=== PATIENT | female | born 1940 | race Caucasian/White ===

== ENCOUNTER → 2017-05-09 | Outpatient (CLI) | payer MEDICARE, BC ==
[~2017-05-09] MED LIST: ACETAMINOPHEN650 M3 PO; AMOX TR-K CLV 81 TA1 PO; ASPIRIN81 M1 PO; BENZONATATE PO; CARAFATE1 G PO; CARDIZEM CD240 MG PO; CO Q-1050 MG PO; COLCRYS0.6 M2 PO; COMBIVENT RESPIM4 GM; DILTIAZEM ER240 M1 PO; FLONASE16 GM; FLOVENT7.9 GM 44; HYOSCYAMINE0.375 M1 PO; K-DUR20 ME1 PO; LEVAQUIN750 MG; LIPITOR80 MG PO; LISINOPRIL PO; METOPROLOL PO; METOPROLOL SUCC25 MG PO; MULTIVITAMIN1 UDCAP PO; OMEGA 3-6-9 11200 MG PO; OXYGEN; PREVACID PO; PROTONIX PO; Q 10; QVAR7.3 GM INH; SEREVENT D50 MCG/DIS PO; SYMBICORT; SYMBICORT INH; THEO-DUR300 MG PO; TRIAMTERENE-HC1 EACH PO; VITAMIN C500 M1 PO; VITAMIN D2000 UNIT PO; ZOCOR PO; ZOFRAN PO
--- NOTE | ~2017-05-09 | CT57 ---
[facility] A Service of [facility] RADIOLOGY TEXT RESULTS PATIENT: GRANT MADRID LOCATION: [facility] : 44 UNIT #: [id number] AGE: [address]: Armando Cortez MD SEX: F ORDER DR: [id number] [place], [place] [address] [id number] O MR#: [id number] Acc #: [id number] NAME: GRANT MADRID : 1940 SEX: F STUDY DATE/TIME: 05/09/2017 10:49 UNIT: [facility] ROOM: STUDY DESCRIPTION: CT Chest Wo Cont Attending Physician: Armando Cortez M.D. Referring Physician: Armando Cortez M.D. Ordering Physician: Armando Cortez M.D. Primary Care Physician: Jermaine Sosa M.D. MEDICAL IMAGING REPORT This report is preliminary unless electronic signature is present EXAM CT chest INDICATION COPD. Right lower lobe pulmonary opacity. Bronchiectasis. Pulmonary abscess. TECHNIQUE CT of the thorax without contrast. Coronal and sagittal reconstructions were obtained. This CT examination was performed with one or more of the following radiation dose reduction techniques: automatic exposure control, adjustment of mA and/or kV according to patient size, and iterative reconstruction. COMPARISON CT chest dated 11/08/2016 and 09/06/2016. FINDINGS There is minimal persistent linear interstitial opacities in the right lung base from the patient's prior pulmonary infection. This continues to improve. There are no new pulmonary opacities. There is no focal consolidation. There is moderate emphysema. Central airways are patent. There is borderline enlargement of the main pulmonary artery measuring 3 cm. There is no pericardial or pleural effusion. Thoracic aorta is normal in caliber. There are some benign partially calcified mediastinal and hilar lymph nodes. Limited images of the upper abdomen were obtained. There is no acute findings. [facility] A Service of [facility] RADIOLOGY TEXT RESULTS PATIENT: GRANT MADRID LOCATION: [facility] : 44 UNIT #: [id number] AGE: [address]: Armando Cortez MD SEX: F ORDER DR: IMPRESSION 1. Continued improvement in the linear interstitial opacities in the right lower lobe likely the sequela of the patient's prior pulmonary infection. There is no new focal consolidation. 2. Emphysema. Dictated by... Blaine Jo M.D. THIS IS AN ELECTRONICALLY VERIFIED REPORT Blaine Jo M.D. at 05/10/2017 8:03 AM MAXI/yolanda TD: 05/10/2017 07:47 JOB #: [id number] MEDICAL IMAGING REPORT Page 1 of 1 COPY
== END | disposition home or self-care (01) ==
LOC: CCAT 10:29
DX: J47.9 Bronchiectasis, uncomplicated (principal); J85.1 Abscess of lung with pneumonia; J43.9 Emphysema, unspecified
CPT/HCPCS: 71250

== ENCOUNTER → 2017-05-22 | Outpatient (CLI) | payer MEDICARE, BC ==
--- NOTE | ~2017-05-22 | MY29 ---
[facility] A Service of [facility] RADIOLOGY TEXT RESULTS PATIENT: GRANT MADRID LOCATION: [facility] : 44 UNIT #: [id number] AGE: [address]: Jermaine Sosa MD SEX: F ORDER DR: [id number] [facility] [address] [place], [place] [address] [id number] O MR#: [id number] Acc #: [id number] NAME: GRANT MADRID : 1940 SEX: F STUDY DATE/TIME: 05/22/2017 10:22 UNIT: [facility] ROOM: STUDY DESCRIPTION: MY HARI SCREENING W/ CAD BILAT Attending Physician: Jermaine Sosa M.D. Ordering Physician: Jermaine Sosa M.D. Primary Care Physician: Jermaine Sosa M.D. MEDICAL IMAGING REPORT This report is preliminary unless electronic signature is present EXAM Digital screening mammogram 05/22/2017. HISTORY 76-year-old woman previous right lumpectomy 1991. Adjuvant radiation therapy, chemotherapy. Personal and family history, sister age 72. Annual screen. COMPARISON STUDIES Comparison mammograms date to 10/05/2006 with most recent screening comparison 05/18/2016. FINDINGS Digital imaging of each breast was completed utilizing screening protocol. Lumpectomy markers were placed on the right breast. Review includes FDA-approved CAD device. Breast parenchyma is fatty replaced and stable bilaterally. Post lumpectomy findings right breast are stable. Occasional benign calcifications in each breast. I see no suspicious mass. There are no interval occurring microcalcifications and no suspicious architectural deformity. IMPRESSION Negative mammogram. Stable post lumpectomy findings right breast. Annual screening recommended. BIRADS 1 Patients over the age of 40 are entered into a reminder system with target due date for the next mammogram. A result letter will also be sent to the patient. BIRADS: 1 - Negative Dictated by... Alexy Shields M.D. [facility] A Service of [facility] RADIOLOGY TEXT RESULTS PATIENT: GRANT MADRID LOCATION: [facility] : 44 UNIT #: [id number] AGE: [address]: Jermaine Sosa MD SEX: F ORDER DR: THIS IS AN ELECTRONICALLY VERIFIED REPORT Alexy Shields M.D. at 05/22/2017 3:52 PM Lluvia TD: 05/22/2017 15:40 JOB #: [id number] MEDICAL IMAGING REPORT Page 1 of 1 COPY
== END | disposition home or self-care (01) ==
LOC: CWCC 09:56
DX: Z12.31 Encounter for screening mammogram for malignant neoplasm of breast (principal); Z85.3 Personal history of malignant neoplasm of breast; Z80.3 Family history of malignant neoplasm of breast
CPT/HCPCS: G0202